=== PATIENT | male | born 1975 | race Caucasian/White ===

== ENCOUNTER 2016-11-09 10:39 | Emergency (ER) | payer MEDICAID, OTHER ==
[2016-11-09 10:51] VITALS: BP 142/75; PULSE 84; RESP 18; TEMP 98.4; O2SAT 92
--- NOTE | 2016-11-09 12:01 | EDPHY ---
H & P Smoking Status: Heavy smoker Time Seen by Provider: 11/09/16 11:26 HPI/ROS: CHIEF COMPLAINT: "I think I was bitten by a brown recluse spider" HISTORY OF PRESENT ILLNESS: 41-year-old immunocompetent male with up-to-date tetanus, no history of chronic skin infections or MRSA, complaining of itching bite to his left forearm and a tender draining lesion to his left forearm. He saw I brown spider near his arm last night. Concerned that maybe brown recluse bite. No prior history of similar lesions. No fever no chills. PHYSICAL EXAM (Prior to examination, patient consented to physical exam, hands were washed and my usual and customary physical exam procedures followed) 1) GENERAL: Well-developed, well-nourished, alert and oriented. Appears to be in no acute distress. 2) HEAD: Normocephalic 3) HEENT: sclera anicteric 4) LUNGS: Breathing comfortably. 5) SKIN: left forearm he has an excoriated tender erythematous lesion with no lymphangitic streaking, no epitrochlear adenopathy, soft compartments, no crepitus. 6) MUSCULOSKELETAL: no pain with passive range of motion distally (Lai Reddy) Constitutional: Initial Vital Signs Temperature (C) 36.9 C 11/09/16 10:45 Heart Rate 84 11/09/16 10:45 Respiratory Rate 18 11/09/16 10:45 Blood Pressure 142/75 H 11/09/16 10:45 O2 Sat (%) 92 11/09/16 10:45 O2 Delivery Mode Room Air Allergies/Adverse Reactions: No Known Allergies Allergy (Verified 11/09/16 10:48) Home Medications: Medication Instructions Recorded Cephalexin [Keflex] 500 mg PO QID 10 Days 11/09/16 MDM/Departure - MDM ED Course/Re-evaluation: I think that antibiotics are indicated in this patient, recommended monotherapy with Keflex as he has no history of MRSA no history of chronic skin infections. His tetanus is up-to-date. Doubt deep space infection, doubt abscess, doubt necrotizing fasciitis, doubt compartment syndrome. Usual and customary wound precautions and instructions provided. (Lai Reddy) This patient was primarily evaluated and managed by the PA. I agree with the plan of care. I am the secondary supervising physician. (Fatoumata Carlson) - Depart Disposition: Home, Routine, Self-Care Clinical Impression: Furuncle Condition: Good Instructions: Furunculosis and Carbunculosis (ED) Additional Instructions: Return to the ER if you develop redness, swelling, discharge, warmth to the wound, red streaks going up your arm or any other symptoms that concern you. Prescriptions: Cephalexin [Keflex] 500 mg PO QID 10 Days Referrals: [facility],. [Clinic] - 1-2 days without fail
== END 2016-11-09 12:18 | disposition home or self-care (01) ==
DX: L02.424 Furuncle of left upper limb (principal); F17.200 Nicotine dependence, unspecified, uncomplicated